=== PATIENT | male | born 1955 | race Caucasian/White ===

== ENCOUNTER 2019-12-23 13:47 | Inpatient (IN) | payer BC ==
[2019-12-23 14:46] LABS: Absolute Lymphocytes (CBC) 2.1 K/uL (0.7-4.9); Basophils % 0.4 % (0-1.3); Hematocrit 44.1 % (39.6-49.0); Lymphocytes % 23.6 % (15.3-44.8); MPV 7.9 fL (7.6-11.3); RBC Red Blood Cell Count 4.62 M/uL (4.33-5.43)
[2019-12-23 14:47] LABS: Protime INR 1.04
[2019-12-23] MEDS ORDERED: NA CHLORIDE 0.9% 1,000 ML ONE (15:01)
[2019-12-23 15:05] LABS: ALT/SGPT 62 U/L (12-78); AST/SGOT 35 U/L (15-37); Albumin 3.7 g/dL (3.4-5.0); Alkaline Phosphatase 76 U/L (45-117); BUN Blood Urea Nitrogen 59 mg/dL (7-18); Bicarbonate 26 mmol/L (21-32); Bilirubin Direct 0.3 mg/dL (0-0.2); Bilirubin Total 1.3 mg/dL (0.2-1.0); Glucose Level 96 mg/dL (74-106); NT PRO-BNP 84 pg/mL (<125); Potassium 3.3 mmol/L (3.5-5.1); Protein, Total 7.4 g/dL (6.4-8.2); Sodium Level 138 mmol/L (136-145); Troponin (Emerg Dept Use Only) < 0.02 ng/mL (0.0-0.045)
--- NOTE | 2019-12-23 15:29 | RAD REPORT ---
EXAM DESCRIPTION: Kayden Single View12/23/2019 3:10 pm CLINICAL HISTORY: syncope COMPARISON: none FINDINGS: The lungs appear clear of acute infiltrate. The heart is normal size IMPRESSION: No acute abnormalities displayed
--- NOTE | 2019-12-23 15:37 | EDPHYS ---
Physician Documentation [facility] Name: Mahad Mcdowell Age: 64 yrs Sex: Male : 1955 Arrival Date: 12/23/2019 Time: 13:49 Bed 15 Private MD: ED Physician Abisai Roca HPI: 12/22 15:36 This 64 yrs old Male presents to ER via Ambulatory with complaints of Blood kdr Pressure Problem. 15:36 The patient has experienced syncope, collapsed. Onset: The symptoms/episode kdr began/occurred suddenly, just prior to arrival. Duration: This was a single episode, Brief. Context: the episode(s) was witnessed, by a bystander, occurred at work, occurred while the patient was standing, Talking. Associated injury: Neck: Back: thoracic area, pain, Very minor. 12/23 09:18 Associated signs and symptoms: The patient has no apparent associated signs or kdr symptoms. Current symptoms: Currently, the patient is not experiencing any symptoms, the patient feels back to baseline. The patient has experienced similar episodes in the past, a few times, Tends to be more "near syncopal" as opposed to true syncope. Feel like his vision get white like he is going to pass out some time. 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 The patient has not recently seen a physician. Historical: - Allergies: 12/22 13:58 No Known Allergies; ss - Home Meds: 14:41 rosuvastatin 20 mg oral tab [Active]; Dexilant 60 mg oral CpDB [Active]; allopurinol jl7 100 mg Oral tab [Active]; irbesartan 300 mg oral tab [Active]; chlorthalidone 25 mg Oral tab [Active]; metoprolol tartrate 100 mg Oral tab [Active]; - PMHx: 14:41 Hypertension; High Cholesterol; Gout; jl7 - Immunization history:: Adult Immunizations up to date. - Social history:: Smoking status: Patient denies any tobacco usage or history of. ROS: 12/23 09:18 Constitutional: Negative for fever, chills, and weight loss, Eyes: Negative for injury, kdr pain, redness, and discharge, ENT: Negative for injury, pain, and discharge, Neck: Negative for injury, pain, and swelling, Cardiovascular: Negative for chest pain, palpitations, and edema, Respiratory: Negative for shortness of breath, cough, wheezing, and pleuritic chest pain, Abdomen/GI: Negative for abdominal pain, nausea, vomiting, diarrhea, and constipation, Back: Negative for injury and pain, : Negative for injury, bleeding, discharge, and swelling, MS/Extremity: Negative for injury and deformity, Skin: Negative for injury, rash, and discoloration, Psych: Negative for depression, anxiety, suicide ideation, homicidal ideation, and hallucinations, Allergy/Immunology: Negative for hives, rash, and allergies, Endocrine: Negative for neck swelling, polydipsia, polyuria, polyphagia, and marked weight changes, Hematologic/Lymphatic: Negative for swollen nodes, abnormal bleeding, and unusual bruising. Neuro: Positive for syncope, near syncope, Negative for altered mental status, dizziness, gait disturbance, headache, numbness, tinnitus, tremor, weakness. Exam: 09:18 Constitutional: This is a well developed, well nourished patient who is awake, alert, kdr and in no acute distress. Head/Face: Normocephalic, atraumatic. Eyes: Pupils equal round and reactive to light, extra-ocular motions intact. Lids and lashes normal. Conjunctiva and sclera are non-icteric and not injected. Cornea within normal limits. Periorbital areas with no swelling, redness, or edema. Neck: Trachea midline, no thyromegaly or masses palpated, and no cervical lymphadenopathy. Supple, full range of motion without nuchal rigidity, or vertebral point tenderness. No Meningismus. Chest/axilla: Normal chest wall appearance and motion. Nontender with no deformity. No lesions are appreciated. Cardiovascular: Regular rate and rhythm with a normal S1 and S2. No gallops, murmurs, or rubs. Normal PMI, no JVD. No pulse deficits. Respiratory: Lungs have equal breath sounds bilaterally, clear to auscultation and percussion. No rales, rhonchi or wheezes noted. No increased work of breathing, no retractions or nasal flaring. Abdomen/GI: Soft, non-tender, with normal bowel sounds. No distension or tympany. No guarding or rebound. No evidence of tenderness throughout. Back: No spinal tenderness. No costovertebral tenderness. Full range of motion. Skin: Warm, dry with normal turgor. Normal color with no rashes, no lesions, and no evidence of cellulitis. MS/ Extremity: Pulses equal, no cyanosis. Neurovascular intact. Full, normal range of motion. Neuro: Awake and alert, GCS 15, oriented to person, place, time, and situation. Cranial nerves II-XII grossly intact. Motor strength 5/5 in all extremities. Sensory grossly intact. Cerebellar exam normal. Normal gait. Psych: Awake, alert, with orientation to person, place and time. Behavior, mood, and affect are within normal limits. 09:18 Back: pain, that is very mild, of the thoracic area. Vital Signs: 12/22 13:52 BP 97 / 61; Pulse 74; Resp 16; Temp 97.0; Pulse Ox 100% on R/A; Weight 93.44 kg; Height ss 5 ft. 11 in. (180.34 cm); Pain 0/10; 14:41 BP 92 / 73; Pulse 65; Resp 13; Pulse Ox 100% ; Pain 0/10; jl7 15:00 BP 87 / 70; Pulse 70; Resp 15; Pulse Ox 100% ; jl7 15:45 BP 101 / 79; Pulse 62; Resp 15; Pulse Ox 100% ; jl7 17:45 BP 106 / 70; Pulse 65; Resp 16; Pulse Ox 100% ; jl7 13:52 Body Mass Index 28.73 (93.44 kg, 180.34 cm) ss 15:00 ERD notified, VO for 1L NS bolus jl7 MDM: 15:36 Patient medically screened. kdr 12/23 09:18 Data reviewed: vital signs, nurses notes, lab test result(s), radiologic studies. kdr Counseling: I had a detailed discussion with the patient and/or guardian regarding: the historical points, exam findings, and any diagnostic results supporting the discharge/admit diagnosis, lab results, radiology results, the need for further work-up and treatment in the hospital. 12/22 14:16 Order name: Basic Metabolic Panel; Complete Time: 15:33 [facility] 12/22 14:16 Order name: CBC with Diff; Complete Time: 15:33 [facility] 12/22 14:16 Order name: LFT's; Complete Time: 15:33 [facility] 12/22 14:16 Order name: Magnesium; Complete Time: 15:33 [facility] 12/22 14:16 Order name: NT PRO-BNP; Complete Time: 15:33 12/22 14:16 Order name: PT-INR; Complete Time: 15:33 7 12/22 14:16 Order name: Troponin (emerg Dept Use Only); Complete Time: 15:33 7 12/22 14:16 Order name: XRAY Chest (1 view); Complete Time: 15:33 7 12/22 14:16 Order name: EKG; Complete Time: 14:18 12/22 16:06 Order name: Head C Spine Cap Wo Con; Complete Time: 16:53 EDMS 12/22 14:16 Order name: Cardiac monitoring; Complete Time: 14:38 7 12/22 14:16 Order name: EKG - Nurse/Tech; Complete Time: 14:38 [facility] 12/22 14:16 Order name: IV Saline Lock; Complete Time: 14:38 7 12/22 14:16 Order name: Labs collected and sent; Complete Time: 14:38 [facility] 12/22 14:16 Order name: O2 Per Protocol; Complete Time: 14:39 [facility] 12/22 14:16 Order name: O2 Sat Monitoring; Complete Time: 14:39 jl7 Administered Medications: 12/22 14:55 Drug: NS 0.9% 1000 ml Route: IV; Rate: 1 bolus; Site: right antecubital; jl 17:00 Follow up: Response: No adverse reaction; IV Status: Completed infusion; IV Intake: jl7 1000ml Disposition: 12/23/19 15:36 Hospitalization ordered by Tho Real for Inpatient Admission. Preliminary diagnosis are Syncope and collapse, Hypotension, Bradycardia, unspecified. - Bed requested for Telemetry/MedSurg (observation). - Status is Inpatient Admission. ls4 - Condition is Fair. - Problem is new. - Symptoms have improved. Signatures: Dispatcher [employer] EDMS Deirdre Wilcox Diana, RN RN Abisai Roca MD MD [facility] Leah Elizabeth RN RN ss Danilo Macdonald, RN ACUTE DIALYSIS-C RN ACUTE DIALYSIS-Cla1 Pineda Vela RN RN jl7 Holly Rowe RN RN ls4 Corrections: (The following items were deleted from the chart) 15:54 15:36 Hospitalization Ordered by Tho Prezas DO for Observation. Preliminary kdr diagnosis is Syncope and collapse; Hypotension; Bradycardia, unspecified. Bed requested for Telemetry/MedSurg (observation). Status is Observation. Condition is Fair. Problem is new. Symptoms have improved. kdr 16:06 15:39 Head C Spine MPR Wo Con+CT.RAD.BRZ ordered. EDMS EDMS 16:06 15:39 Thoracic Spine WO Cont+CT.RAD.BRZ ordered. EDMS EDMS 16:06 16:02 Chest Abdomen Pelvis Wo Con+CT.RAD.BRZ ordered. EDMI EDMS 17:04 15:54 12/23/2019 15:36 Hospitalization Ordered by Tho Real DO for Inpatient dw Admission. Preliminary diagnosis is Syncope and collapse; Hypotension; Bradycardia, unspecified. Bed requested for Telemetry/MedSurg (observation). Status is Inpatient Admission. Condition is Fair. Problem is new. Symptoms have improved. kdr 17:04 17:04 12/23/2019 15:36 Hospitalization Ordered by Tho Real DO for Inpatient bd Admission. Preliminary diagnosis is Syncope and collapse; Hypotension; Bradycardia, unspecified. Bed requested for Telemetry/MedSurg (observation). Status is Inpatient Admission. Condition is Fair. Problem is new. Symptoms have improved. dw 19:32 17:04 12/23/2019 15:36 Hospitalization Ordered by Tho Real DO for Inpatient ls4 Admission. Preliminary diagnosis is Syncope and collapse; Hypotension; Bradycardia, unspecified. Bed requested for Telemetry/MedSurg (observation). Status is Inpatient Admission. Condition is Fair. Problem is new. Symptoms have improved. bd
--- NOTE | 2019-12-23 15:37 | ER ---
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 Pt ss reports feeling slightly lightheaded prior to incident. Coronavirus screen: Proceed with normal triage. Patient denies a cough. Patient reports shortness of breath or difficulty breathing. Patient denies measured and/or subjective temperature greater than 100.4F prior to today's visit. Patient denies travel on a cruise ship or to a country the [facility]NOTE 3] currently lists as an affected area. Patient denies contact with known and/or suspected case of COVID-19. Ebola Screen: Patient denies exposure to infectious person. Patient denies travel to an Ebola-affected area in the 21 days before illness onset. Initial Sepsis Screen: Does the patient meet any 2 criteria? No. Patient's initial sepsis screen is negative. Does the patient have a suspected source of infection? No. Patient's initial sepsis screen is negative. Risk Assessment: Do you want to hurt yourself or someone else? Patient reports no desire to harm self or others. Onset of symptoms was December 23, 2019. 13:52 Method Of Arrival: Ambulatory ss 13:52 Acuity: IVAN 3 ss Historical: - Allergies: 13:58 No Known Allergies; ss - Home Meds: 14:41 rosuvastatin 20 mg oral tab [Active]; Dexilant 60 mg oral CpDB [Active]; allopurinol jl7 100 mg Oral tab [Active]; irbesartan 300 mg oral tab [Active]; chlorthalidone 25 mg Oral tab [Active]; metoprolol tartrate 100 mg Oral tab [Active]; - PMHx: 14:41 Hypertension; High Cholesterol; Gout; jl7 - Immunization history:: Adult Immunizations up to date. - Social history:: Smoking status: Patient denies any tobacco usage or history of. Screenin:41 Abuse screen: Denies threats or abuse. Denies injuries from another. Nutritional jl7 screening: No deficits noted. Tuberculosis screening: No symptoms or risk factors identified. Fall Risk IV access (20 points). Total Rosales Fall Scale indicates No Risk (0-24 pts). Assessment: 14:00 General: Appears in no apparent distress. uncomfortable, Behavior is calm, cooperative, jl7 appropriate for age. Pain: Denies pain. Neuro: Level of Consciousness is awake, alert, obeys commands, Oriented to person, place, time, situation. Cardiovascular: Patient's skin is warm and dry. Respiratory: Airway is patent Respiratory effort is even, unlabored, Respiratory pattern is regular, symmetrical. GI: Patient currently denies diarrhea, nausea, vomiting. Derm: Skin is pink, warm \T\ dry. 15:00 Reassessment: ERD notified of BP, VO for 1 L NS bolus. jl7 16:00 Reassessment: Patient appears in no apparent distress at this time. No changes from jl7 previously documented assessment. Patient and/or family updated on plan of care and expected duration. Pain level reassessed. Patient is alert, oriented x 3, equal unlabored respirations, skin warm/dry/pink. 17:00 Reassessment: Patient appears in no apparent distress at this time. No changes from jl7 previously documented assessment. Patient and/or family updated on plan of care and expected duration. Pain level reassessed. Patient is alert, oriented x 3, equal unlabored respirations, skin warm/dry/pink. Vital Signs: 13:52 BP 97 / 61; Pulse 74; Resp 16; Temp 97.0; Pulse Ox 100% on R/A; Weight 93.44 kg; Height ss 5 ft. 11 in. (180.34 cm); Pain 0/10; 14:41 BP 92 / 73; Pulse 65; Resp 13; Pulse Ox 100% ; Pain 0/10; jl7 15:00 BP 87 / 70; Pulse 70; Resp 15; Pulse Ox 100% ; jl7 15:45 BP 101 / 79; Pulse 62; Resp 15; Pulse Ox 100% ; jl7 17:45 BP 106 / 70; Pulse 65; Resp 16; Pulse Ox 100% ; jl7 13:52 Body Mass Index 28.73 (93.44 kg, 180.34 cm) ss 15:00 ERD notified, VO for 1L NS bolus jl7 ED Course: 13:49 Patient arrived in ED. ag5 13:56 Triage completed. ss 13:58 Arm band placed on left wrist. ss 14:06 Pineda Vela, RN is Primary Nurse. jl7 14:06 Abisai Roca MD is Attending Physician. jl7 14:20 Patient has correct armband on for positive identification. Placed in gown. Bed in low jl7 position. Call light in reach. Side rails up X2. alarm security or surveillance monitor on. Pulse ox on. NIBP on. Warm blanket given. 14:40 EKG done, by lead based paint technician. reviewed by Abisai Roca MD. at1 14:42 Inserted saline lock: 20 gauge in right antecubital area, using aseptic technique. dh4 15:10 XRAY Chest (1 view) In Process Unspecified. EDMS 15:36 Tho Real DO is Hospitalizing Provider. kdr 16:14 Head C Spine Cap Wo Con In Process Unspecified. EDMS 17:45 No provider procedures requiring assistance completed. Patient admitted, IV remains in jl7 place. intact, No redness/swelling at site. Administered Medications: 14:55 Drug: NS 0.9% 1000 ml Route: IV; Rate: 1 bolus; Site: right antecubital; jl7 17:00 Follow up: Response: No adverse reaction; IV Status: Completed infusion; IV Intake: jl7 1000ml Intake: 17:00 IV: 1000ml; Total: 1000ml. jl7 Outcome: 15:36 Decision to Hospitalize by Provider. kdr 19:32 Patient left the ED. ls4 Signatures: Dispatcher [employer] EDMS Abisai Roca MD MD kdr Leah Elizabeth RN RN Katharina Clemens, commercial trailer truck driver EKG Tat1 Pineda Vela, RN RN jl7 Holly Rowe, RN RN ls4 Rome Mendoza Bautista Tellez 4
--- NOTE | 2019-12-23 16:31 | RAD REPORT ---
EXAM DESCRIPTION: CT - Head C Spine Cap Wo Con - 12/23/2019 4:13 pm TECHNIQUE: Computed axial tomography of the head and cervical spine was obtained. Coronal and sagitt al reconstruction was performed Computed axial tomography of the chest, abdomen and pelvis was obtained. Contrast was not requested. All CT scans are performed using dose optimization technique as appropriate and may include automated exposure control or mA/KV adjustment according to patient size. CLINICAL HISTORY: Syncope. Head and neck injury with chest and abdominal pain status post fall COMPARISON: none FINDINGS: An intracranial bleed is not seen. The ventricles are prominent. An extra-axial fluid collection is not noted. . Fluid within the sinuses/mastoids is not seen. A cervical fracture is not seen. No dislocation is noted. The evaluation of mediastinum, farhad, vessels, solid organs and bowel are limited secondary to the lac k of contrast administration. A mediastinal hematoma is not noted. A pleural effusion is not seen. A lung contusion is not present. The liver,spleen, pancreas, adrenals,kidneys and bladder appear grossly normal. The right kidney lies within the right pelvis. IMPRESSION: 1. Prominence of the ventricles. This may be secondary to cerebral atrophy. Normal pressure hydroceph alus can also result in this appearance and should be correlated clinically. No traumatic intracrania l abnormality noted. 2. A cervical fracture is not visualized. If the patient continues have symptoms to suggest intracran ial/spinal cord pathology MRI be recommended 3. No traumatic abnormality involving the chest/abdomen/pelvis.
--- NOTE | 2019-12-23 16:51 | P.HP ---
Certification for Inpatient Patient admitted to: Inpatient With expected LOS: >2 Midnights Patient will require the following post-hospital care: None Practitioner: I am a practitioner with admitting privileges, knowledge of patient current condition, hospital course, and medical plan of care. Services: Services provided to patient in accordance with Admission requirements found in Title 42 Section 412.3 of the Code of Federal Regulations Patient History Date of Service: 12/23/19 Primary Care Provider: Out of town Reason for admission: Syncope, acute renal failure History of Present Illness: 64 old male with medical history of hypertension, gout, hyperlipidemia presented to the emergency department for syncope that occurred at work. Patient reports that he was talking with a co-worker and passed out. Patient denies any chest pain, diaphoresis, shortness of breath prior to this episode. Patient also denies any headache or neurological symptoms surrounding this episode of syncope. Upon arrival to the emergency department patient was found to be hypotensive and bradycardic. Patient was given fluid bolus and blood pressure has improved. Heart rate is also normalized to around the 60s. Patient does state beta-robert therapy. During his evaluation in the emergency department patient was also found to have acute renal failure with a creatinine greater than 3. Patient admits to recently taking colchicine for gout as well as his ARB, and diuretic for blood pressure. When I saw the patient in the emergency department he appeared comfortable, stable. Patient does not appear septic at this time. Vital signs within normal limits. Patient's potassium is 3.3. Nephrology was consulted while patient was in the emergency department. Patient will be admitted for further evaluation and management of this condition. Home medications list reviewed: Yes - Past Medical/Surgical History Has patient received pneumonia vaccine in the past: No Diabetic: No -: Gout -: Hypertension -: TURP -: Thumb surgery Psychosocial/ Personal History: Patient is single and lives at home. - Family History Mother -: Cancer Father -: Heart disease, Hypertension - Social History Smoking Status: Former smoker Alcohol use: Yes CD- Drugs: No Caffeine use: Yes Place of Residence: Home Review of Systems General: Unremarkable Eyes: Unremarkable ENT: Unremarkable Respiratory: Unremarkable Cardiovascular: As per HPI Gastrointestinal: Unremarkable Genitourinary: Unremarkable Musculoskeletal: Unremarkable Integumentary: Unremarkable Neurological: Unremarkable Lymphatics: Unremarkable Physical Examination - Physical Exam General: Alert, In no apparent distress, Oriented x3 HEENT: Atraumatic, Normocephalic, PERRLA Neck: Supple Respiratory: Clear to auscultation bilaterally, Normal air movement Cardiovascular: Normal pulses, Regular rate/rhythm, Normal S1 S2 Capillary refill: <2 Seconds Gastrointestinal: Normal bowel sounds, Soft and benign, No ascites, No tendernes s, No masses, No rebound, No guarding Musculoskeletal: No clubbing, No contractures, No erythema, No tenderness, No warmth Integumentary: No tenderness/swelling, No erythema, No warmth Neurological: Normal speech, Normal tone, Normal affect - Studies Laboratory Data (last 24 hrs) 12/23/19 14:32: PT 12.3, INR 1.04 12/23/19 14:32: WBC 8.9, Hgb 15.1, Hct 44.1, Plt Count 256 12/23/19 14:32: Sodium 138, Potassium 3.3 L, BUN 59 H, Creatinine 3.56 H, Glucose 96, Magnesium 2.0, Total Bilirubin 1.3 H, AST 35, ALT 62, Alkaline Phosphatase 76 Assessment and Plan - Plan Assessment Syncope with hypotension and bradycardia likely secondary to acute renal failure and beta-robert use Acute renal failure likely secondary to NSAID use in concurrence with ARB and diuretic Hypertension Hyperlipidemia Gout Plan Syncope with hypotension and bradycardia likely secondary to acute renal failure and beta-robert use: Patient will be admitted for further evaluation management. Will obtain echocardiogram and arterial ultrasound of the carotids. Will discontinue blood pressure medications at this time and closely monitor patient's vital signs. Will adjust blood pressure medication as necessary. Nephrology has also been consulted on this case to help manage patient's acute renal failure. DVT prophylaxis with heparin 5000 units subcutaneous twice daily. Patient will remain on telemetry throughout this hospitalization. Acute renal failure likely secondary to NSAID use in concurrence with ARB and diuretic: Nephrology has been consulted on this case. Will discontinue use of NSAIDs and irbesartan as well as chlorthalidone. Will continue with IV fluids and recheck renal function in the morning. Appreciate further input from nephrology. Will follow up from results from CT scan without contrast in the emergency department. Hypertension: Will obtain patient's home medications, will adjust accordingly in regards to patient's acute renal failure and bradycardia. Hyperlipidemia: Will obtain and continue patient's home medications. Gout: Will obtain and continue patient's home medications. Discharge Plan: Home Plan to discharge in: Greater than 2 days - Advance Directives Does patient have a Living Will: No Does patient have a Durable POA for Healthcare: No - Code Status/Comfort Care Code Status Assessed: Yes (Patient is full code) Critical Care: No Time Spent Managing Pts Care (In Minutes): 55
[2019-12-23] MEDS ORDERED: NA CHLORIDE 0.9% 1,000 ML IV SCH ×2 (20:24→22:37)
[2019-12-23] MEDS ORDERED: ONDANSETRON 4 MG/2 ML VIAL IV PRN (20:24)
[2019-12-23] MEDS ORDERED: TRAMADOL HCL 50 MG TAB PO PRN (20:24)
[2019-12-23] MEDS ORDERED: ACETAMINOPHEN 500 MG TAB PO PRN (20:24)
[2019-12-23] MEDS ORDERED: HYDROCODONE/APAP 5/325 MG TAB PO PRN (20:24)
[2019-12-23 21:08] VITALS: BMI 28.7
[2019-12-23] MEDS: HEPARIN 5000 UNIT/ML 1 ML VIAL SQ SCH (21:45)
--- NOTE | 2019-12-23 22:44 | P.CNS ---
Date of Consult: 12/23/19 Reason for Consult: LOC Requesting Physician: Tho Real Primary Care Provider: Out of town Chief Complaint: Syncope, acute renal failure History of Present Illness: 64 yo WM Gout, HTN presented to the ER following an episode of syncope at work while talking to his colleague. Reports drinking plenty of water. No excessive diaphoresis. No NSAIDs. Takes Tylneol as needed for pain. No recent change in medications. No difficulty with urination. Report urinary retention 2 years ago due to BPH/LUTs that improved after surgical intervention by his urologist. Recent flare of gout treated with allopurinol and prednisone. Reports diarrhea with the prednisone. 64 old male with medical history of hypertension, gout, hyperlipidemia presented to the emergency department for syncope that occurred at work. Patient reports that he was talking with a co-worker and passed out. Patient denies any chest pain, diaphoresis, shortness of breath prior to this episode. Patient also denies any headache or neurological symptoms surrounding this episode of syncope. Upon arrival to the emergency department patient was found to be hypotensive and bradycardic. Patient was given fluid bolus and blood pressure has improved. Heart rate is also normalized to around the 60s. Patient does state beta-robert therapy. During his evaluation in the emergency department patient was also found to have acute renal failure with a creatinine greater than 3. Patient admits to recently taking colchicine for gout as well as his ARB, and diuretic for blood pressure. 15:36 This 64 yrs old Male presents to ER via Ambulatory with complaints of Blood kdr Pressure Problem. 15:36 The patient has experienced syncope, collapsed. Onset: The symptoms/episode kdr began/occurred suddenly, just prior to arrival. Duration: This was a single episode, Brief. Context: the episode(s) was witnessed, by a bystander, occurred at work, occurred while the patient was standing, Talking. Associated injury: Neck: Back: thoracic area, pain, Very minor. Allergies No Known Allergies Allergy (Verified 12/23/19 20:26) Home medications list reviewed: Yes Home Medications: Allopurinol 0.5 tab PO DAILY 12/23/19 Chlorthalidone 25 mg PO DAILY 12/23/19 Dexlansoprazole [Dexilant] 60 mg PO PRN PRN 12/23/19 Fluticasone [Flonase 50mcg Nasal [place]] 2 sprays NS DAILY 12/23/19 Irbesartan 300 mg PO DAILY 12/23/19 Levocetirizine Dihydrochloride [Xyzal] 5 mg PO DAILY 12/23/19 Metoprolol Tartrate [Lopressor] 100 mg PO DAILY 12/23/19 Rosuvastatin [Crestor] 20 mg PO BEDTIME 12/23/19 - Past Medical/Surgical History Diabetic: No -: Gout -: Hypertension -: TURP -: Thumb surgery -: tonsillectomy Psychosocial/ Personal History: Patient is single and lives at home. - Family History Mother Medical History: Cancer Father Medical History: Heart disease, Hypertension - Social History Alcohol use: Yes CD- Drugs: No Caffeine use: Yes Place of Residence: Home Review of Systems 10-point ROS is otherwise unremarkable General: Weakness Musculoskeletal: Back Pain Physical Examination Temp Pulse Resp BP Pulse Ox 97.3 F 73 18 98/74 99 12/23/19 20:00 12/23/19 20:00 12/23/19 20:00 12/23/19 20:00 12/23/19 20:00 General: In no apparent distress, Oriented x3, Cooperative HEENT: Atraumatic, Normocephalic Neck: Supple Respiratory: Clear to auscultation bilaterally, Normal air movement Cardiovascular: No edema, Regular rate/rhythm Gastrointestinal: Soft and benign, Non-distended Musculoskeletal: No clubbing, No contractures Integumentary: No rashes, No cyanosis Neurological: Normal speech Laboratory Data (last 24 hrs) 12/23/19 14:32: PT 12.3, INR 1.04 12/23/19 14:32: WBC 8.9, Hgb 15.1, Hct 44.1, Plt Count 256 12/23/19 14:32: Sodium 138, Potassium 3.3 L, BUN 59 H, Creatinine 3.56 H, Glucose 96, Magnesium 2.0, Total Bilirubin 1.3 H, AST 35, ALT 62, Alkaline Phosphatase 76 Imagings Data: CT - Head C Spine Cap Wo Con - 12/23/2019 4:13 pm TECHNIQUE: Computed axial tomography of the head and cervical spine was obtained. Coronal and sagittal reconstruction was performed Computed axial tomography of the chest, abdomen and pelvis was obtained. Contrast was not requested. All CT scans are performed using dose optimization technique as appropriate and may include automated exposure control or mA/KV adjustment according to patient size. CLINICAL HISTORY: Syncope. Head and neck injury with chest and abdominal pain status post fall COMPARISON: none FINDINGS: An intracranial bleed is not seen. The ventricles are prominent. An extra-axial fluid collection is not noted. . Fluid within the sinuses/mastoids is not seen. A cervical fracture is not seen. No dislocation is noted. The evaluation of mediastinum, farhad, vessels, solid organs and bowel are limited secondary to the lack of contrast administration. A mediastinal hematoma is not noted. A pleural effusion is not seen. A lung contusion is not present. The liver,spleen, pancreas, adrenals,kidneys and bladder appear grossly normal. The right kidney lies within the right pelvis. IMPRESSION: 1. Prominence of the ventricles. This may be secondary to cerebral atrophy. Normal pressure hydrocephalus can also result in this appearance and should be correlated clinically. No traumatic intracranial abnormality noted. 2. A cervical fracture is not visualized. If the patient continues have symptoms to suggest intracranial/spinal cord pathology MRI be recommended 3. No traumatic abnormality involving the chest/abdomen/pelvis. EXAM DESCRIPTION: [facility] Single View12/23/2019 3:10 pm CLINICAL HISTORY: syncope COMPARISON: none FINDINGS: The lungs appear clear of acute infiltrate. The heart is normal size IMPRESSION: No acute abnormalities displayed Conclusions/Impression: A/ LOC may be due to hypovolemia Hypokalemia HTN complicated by hypotension Gout Syncope P/ Continue current POC and Medications. Increase IVF. Give LR bolus. Replete potassium. Hold antihypertensives. Renal and Bladder US. No NSAIDs. AM labs. Daily weight. Thank you kindly for consultation. Case reviewed with Danilo Macdonald.
[2019-12-23] MEDS ORDERED: POTASSIUM CL SA 10 MEQ TAB PO ONE (22:52)
[2019-12-23] MEDS ORDERED: Ringers Lactate 500 ML IV SCH (23:00)
[2019-12-24] MEDS: NA CHLORIDE 0.9% 1,000 ML IV SCH ×3 (02:39→14:55)
[2019-12-24 04:57] LABS: Absolute Lymphocytes (CBC) 2.8 K/uL (0.7-4.9); Basophils % 0.4 % (0-1.3); Hematocrit 40.8 % (39.6-49.0); Lymphocytes % 45.1 % (15.3-44.8); MPV 8.2 fL (7.6-11.3); RBC Red Blood Cell Count 4.32 M/uL (4.33-5.43)
[2019-12-24 05:24] LABS: Magnesium 1.6 mg/dL (1.8-2.4); Phosphorus 4.1 mg/dL (2.5-4.9); Potassium 4.1 mmol/L (3.5-5.1); Thyroid Stimulating Hormone 0.436 uIU/mL (0.360-3.740); Uric Acid 11.5 mg/dL (3.5-7.2)
[2019-12-24 05:28] LABS: Blood Morphology Comment NOT SEEN (NOT SEEN); Platelet Estimate ADEQ
[2019-12-24] MEDS ORDERED: MAGNESIUM SULFATE 1 gm IVPB 1 GM/100 ML BAG IV ONE (06:13)
[2019-12-24 07:19] LABS: Urine Appearance CLEAR; Urine Bilirubin NEGATIVE (NEG); Urine Blood NEGATIVE (NEG); Urine Color YELLOW; Urine Glucose NEGATIVE (NEG); Urine Protein NEGATIVE (NEG); Urine Urobilinogen 0.2 mg/dL (0.2-1.0); Urine pH 5.5 (5.0-7.0)
[2019-12-24 08:15] LABS: Urine Bacteria NONE SEEN /HPF (NONE SEEN); Urine Culture Reflex Order NOT NEEDED; Urine RBC NONE SEEN /HPF (NONE SEEN)
[2019-12-24] MEDS: DOCUSATE NA 100 MG CAP PO SCH ×3 (09:00→21:20)
[2019-12-24] MEDS: HEPARIN 5000 UNIT/ML 1 ML VIAL SQ SCH ×2 (09:41→21:20)
--- NOTE | 2019-12-24 09:56 | RAD REPORT ---
EXAM DESCRIPTION: US - Renal Ultrasound-Complete - 12/24/2019 9:12 am CLINICAL HISTORY: LOC COMPARISON: No comparisons FINDINGS: The right kidney measures 8.9 x 5.1 x 3.9 cm. The left kidney measures 12.6 x 5.3 x 4.3 c m. Right kidney is located in the pelvis and less well visualized. There is no history of renal trans plant in this is probably normal variant renal migration abnormality. Renal cortical thickness and ec hogenicity are normal. No hydronephrosis or suspicious renal mass. A 15 millimeter cyst is present lo wer pole of the left kidney. Bladder is evaluated on separately requested examination. IMPRESSION: No hydronephrosis or suspicious renal mass. The right kidney is located in the right side pelvis as a normal developmental variant. No history of renal transplant.
--- NOTE | 2019-12-24 09:58 | RAD REPORT ---
EXAM DESCRIPTION: US - CP - 12/24/2019 9:13 am CLINICAL HISTORY: syncope COMPARISON: No comparisons TECHNIQUE: Real-time sonographic evaluation of bilateral carotid and vertebral systems was performed . Higgins scale and Doppler interrogation were performed with waveform tracing bilaterally. FINDINGS: Normal high resistance waveforms are noted in both external carotid arteries. The common c arotid arteries and internal carotid arteries show normal low resistance waveforms. Focal calcified plaquing changes are present at the origin of the left internal carotid artery. This does not result in a significant degree of luminal narrowing. Peak systolic and end diastolic velocit y values and the ICA/CCA ratios are in the non-hemodynamically significant range. Antegrade flow seen in both vertebral arteries. Velocity values and ratios were recorded and are retained in the patient's imaging records. IMPRESSION: No significant atherosclerotic changes noted. Focal calcified plaque in the left ICA mederos s not cause significant luminal narrowing. No evidence of a hemodynamically significant stenosis.
--- NOTE | 2019-12-24 09:59 | RAD REPORT ---
EXAM DESCRIPTION: US - Urinary Bladder - 12/24/2019 9:13 am CLINICAL HISTORY: LOC. Hx BPH with LUTS. COMPARISON: No comparisons FINDINGS: No bladder wall thickening or mass. Bilateral ureteral jets are identified. No stone or ot her intraluminal abnormality identifiable. IMPRESSION: Unremarkable bladder ultrasound.
--- NOTE | 2019-12-24 11:14 | EKG ---
Test Date: 2019-12-23 Test Time: 14:37:42 Freight Service Inspector: HERIBERTO MEASUREMENT RESULTS: Intervals: Rate: 63 NE: 146 QRSD: 82 QT: 444 QTc: 454 [place]: P: 38 NE: 146 QRS: -5 T: 10 INTERPRETIVE STATEMENTS: Normal sinus rhythm Normal ECG No previous ECG available for comparison Electronically Signed On 12-24-19 11:13:04 CDT by Xander Chapa
--- NOTE | 2019-12-24 11:36 | P.PN ---
Subjective Date of Service: 12/24/19 Primary Care Provider: Out of town Chief Complaint: Syncope, acute renal failure Subjective: No new changes, Tolerating diet, Ambulating, Improving Review of Systems General: Unremarkable Eyes: Unremarkable ENT: Unremarkable Respiratory: Unremarkable Cardiovascular: Unremarkable Gastrointestinal: Unremarkable Genitourinary: Unremarkable Musculoskeletal: Unremarkable Integumentary: Unremarkable Neurological: Unremarkable Physical Examination - Vital Signs Temperature: 96.9 F Blood Pressure: 110/71 Pulse: 64 Respirations: 18 Pulse Ox (%): 97 - Physical Exam General: Alert, In no apparent distress, Oriented x3 HEENT: Atraumatic, Normocephalic Neck: Supple Respiratory: Clear to auscultation bilaterally, Normal air movement Cardiovascular: No edema Capillary refill: <2 Seconds Gastrointestinal: Normal bowel sounds, Soft and benign Musculoskeletal: No erythema, No tenderness Integumentary: No erythema, No warmth Neurological: Normal gait, Normal speech, Normal strength at 5/5 x4 extr, Normal tone - Studies Laboratory Data (last 24 hrs) 12/23/19 14:32: PT 12.3, INR 1.04 12/23/19 14:32: WBC 8.9, Hgb 15.1, Hct 44.1, Plt Count 256 12/23/19 14:32: Sodium 138, Potassium 3.3 L, BUN 59 H, Creatinine 3.56 H, Glucose 96, Magnesium 2.0, Total Bilirubin 1.3 H, AST 35, ALT 62, Alkaline Phosphatase 76 Assessment & Plan Discharge Plan: Home Plan to discharge in: 48 Hours - Code Status/Comfort Care Code Status Assessed: Yes (Patient is full code) Physician Review Additional Text: Assessment Syncope with hypotension and bradycardia likely secondary to acute renal failure and beta-robert use Acute renal failure likely secondary to NSAID use in concurrence with ARB and diuretic Hypertension Hyperlipidemia Gout Plan Syncope with hypotension and bradycardia likely secondary to acute renal failure and beta-robert use: Patient will be admitted for further evaluation management. Ultrasound of the carotids was negative for any significant plaque. Will discontinue blood pressure medications at this time and closely monitor patient's vital signs. Patient's blood pressure has remained within normal limits without use of medication. Nephrology has also been consulted on this case to help manage patient's acute renal failure. DVT prophylaxis with heparin 5000 units subcutaneous twice daily. Patient will remain on telemetry throughout this hospitalization. Acute renal failure likely secondary to dehydration and NSAID use in concurrence with ARB and diuretic: Nephrology has been consulted on this case. Will discontinue use of NSAIDs and irbesartan as well as chlorthalidone. Will continue with IV fluids and recheck renal function in the morning. Appreciate further input from nephrology. Patient had a CT scan without contrast, renal ultrasound, bladder ultrasound that were all unremarkable for cause of acute renal failure. Hypertension: Patient's blood pressure has remained on the low end of normal without any blood pressure medications. Will continue to monitor patient's blood pressure. Hyperlipidemia: Will obtain and continue patient's home medications. Triglycerides are elevated will consider prescription for fish oil upon discharge. Gout: Will obtain and continue patient's home medications. Critical Care: No Time Spent Managing Pts Care (In Minutes): 55
--- NOTE | 2019-12-24 12:00 | ECHO ---
HEIGHT: 5 ft 11 in WEIGHT: 206 lb 0 oz DATE OF STUDY: 12/24/[address]: Danilo Macdonald NP 2-DIMENSIONAL: YES M.MODE: YES DOPPLER: YES COLOR FLOW: YES TDS: YES PORTABLE: NO DEFINITY: NO BUBBLE STUDY: NO DIAGNOSIS: SYNCOPE CARDIAC HISTORY: CATHERIZATION: NO SURGERY: NO PROSTHETIC VALVE: NO PACEMAKER: NO MEASUREMENTS (cm) DIASTOLIC (NORMALS) SYSTOLIC (NORMALS) IVSd 1.0 (0.6-1.2) LA Diam 3.4 (1.9-4.0) LVEF 62% LVIDd 3.5 (3.5-5.7) LVIDs 2.4 (2.0-3.5) %FS 33% LVPWd 1.1 (0.6-1.2) Ao Diam 3.3 (2.0-3.7) 2 DIMENSIONAL ASSESSMENT: RIGHT ATRIUM: NORMAL LEFT ATRIUM: NORMAL RIGHT VENTRICLE: NORMAL LEFT VENTRICLE: NORMAL TRICUSPID VALVE: NORMAL MITRAL VALVE: MITRAL ANNULAR CALCIFICATION PULMONIC VALVE: NORMAL AORTIC VALVE: NORMAL PERICARDIAL EFFUSION: NONE AORTIC ROOT: NORMAL LEFT VENTRICULAR WALL MOTION: NORMAL DOPPLER/COLOR FLOW: MILD TRICUSPID REGURGITATION. COMMENTS: TECHNICALLY DIFFICULT STUDY. NORMAL LEFT VENTRICULAR SIZE AND FUNCTION. MITRAL ANNULAR CALCIFICATION. AORTIC SCLEROSIS WITH NO STENOSIS. TECHNOLOGIST: Gerhard MENDES
[2019-12-24] MEDS: NACHLORIDE 0.45% 1,000 ML IV SCH (17:46)
--- NOTE | 2019-12-24 22:09 | P.PN ---
Date of Service: 12/24/19 Vital Signs Temp Pulse Resp BP Pulse Ox 97.6 F 56 18 115/80 99 12/24/19 16:00 12/24/19 16:00 12/24/19 16:00 12/24/19 16:00 12/24/19 16:00 Medications Acetaminophen (Tylenol -Extra Strength) 500 mg PO Q4HP PRN PRN Reason: TEMP > 101' F Stop: 01/22/20 20:25 Hydrocodone Bitart/Acetaminophen ([place] 5/325) 1 tab PO Q6H PRN PRN Reason: Pain scale 5-7 (Moderate) Stop: 01/22/20 20:25 Docusate Sodium (Colace Cap) 100 mg PO BID [facility] Stop: 01/23/20 09:01 Last Admin: 12/24/19 21:20 Dose: 100 mg Documented by: Heparin Sodium (Porcine) (Heparin 5,000 Units/Ml) 5,000 unit SQ Q12HR [facility] Stop: 01/22/20 21:01 Last Admin: 12/24/19 21:20 Dose: 5,000 unit Documented by: Sodium Chloride (Sodium Chloride 0.45%) 1,000 mls @ 125 mls/hr IV .Q8H [facility] Stop: 01/23/20 17:01 Last Admin: 12/24/19 17:46 Dose: 1,000 mls Documented by: Ondansetron HCl (Zofran) 4 mg IV Q6HP PRN PRN Reason: NAUSEA / VOMITING Stop: 01/22/20 20:25 Sodium Chloride (Normal Saline Flush) 10 ml IV BID [facility] Stop: 01/22/20 21:01 Last Admin: 12/24/19 21:00 Dose: Not Given Documented by: Tramadol HCl (Ultram) 50 mg PO Q6H PRN PRN Reason: Pain scale 5-7 (Moderate) Stop: 01/22/20 20:25 Assessment/ Plan: Nephrology CPS stable without CP or SOB. No acute events overnight. Feeling better. Vitals, medications, blood work and imaging reviewed in the chart. General: In no apparent distress, Oriented x3, Cooperative HEENT: Atraumatic, Normocephalic Neck: Supple Respiratory: Clear to auscultation bilaterally, Normal air movement Cardiovascular: No edema, Regular rate/rhythm Gastrointestinal: Soft and benign, Non-distended Musculoskeletal: No clubbing, No contractures Integumentary: No rashes, No cyanosis Neurological: Normal speech Laboratory Data (last 24 hrs) 12/23/19 14:32: PT 12.3, INR 1.04 12/23/19 14:32: WBC 8.9, Hgb 15.1, Hct 44.1, Plt Count 256 12/23/19 14:32: Sodium 138, Potassium 3.3 L, BUN 59 H, Creatinine 3.56 H, Glucose 96, Magnesium 2.0, Total Bilirubin 1.3 H, AST 35, ALT 62, Alkaline Phosphatase 76 Imagings Data: CT - Head C Spine Cap Wo Con - 12/23/2019 4:13 pm TECHNIQUE: Computed axial tomography of the head and cervical spine was obtained. Coronal and sagittal reconstruction was performed Computed axial tomography of the chest, abdomen and pelvis was obtained. Contrast was not requested. All CT scans are performed using dose optimization technique as appropriate and may include automated exposure control or mA/KV adjustment according to patient size. CLINICAL HISTORY: Syncope. Head and neck injury with chest and abdominal pain status post fall COMPARISON: none FINDINGS: An intracranial bleed is not seen. The ventricles are prominent. An extra-axial fluid collection is not noted. . Fluid within the sinuses/mastoids is not seen. A cervical fracture is not seen. No dislocation is noted. The evaluation of mediastinum, farhad, vessels, solid organs and bowel are limited secondary to the lack of contrast administration. A mediastinal hematoma is not noted. A pleural effusion is not seen. A lung contusion is not present. The liver,spleen, pancreas, adrenals,kidneys and bladder appear grossly normal. The right kidney lies within the right pelvis. IMPRESSION: 1. Prominence of the ventricles. This may be secondary to cerebral atrophy. Normal pressure hydrocephalus can also result in this appearance and should be correlated clinically. No traumatic intracranial abnormality noted. 2. A cervical fracture is not visualized. If the patient continues have symptoms to suggest intracranial/spinal cord pathology MRI be recommended 3. No traumatic abnormality involving the chest/abdomen/pelvis. EXAM DESCRIPTION: [facility] Single View12/23/2019 3:10 pm CLINICAL HISTORY: syncope COMPARISON: none FINDINGS: The lungs appear clear of acute infiltrate. The heart is normal size IMPRESSION: No acute abnormalities displayed Conclusions/Impression: A/ LOC may be due to hypovolemia Hypokalemia HTN complicated by hypotension Gout Syncope P/ Continue current POC and Medications. Change IVF to 1/2NS. Replete lytes PRN. Give MagOx. Hold antihypertensives. Change to regular diet. No NSAIDs. AM labs. Daily weight.
[2019-12-24] MEDS ORDERED: MAGNESIUM OXIDE 400 MG TAB PO SCH (22:15)
[2019-12-25] MEDS: NACHLORIDE 0.45% 1,000 ML IV SCH ×3 (01:37→11:51)
[2019-12-25 06:06] VITALS: O2SAT 98
[2019-12-25 06:37] LABS: Magnesium 1.8 mg/dL (1.8-2.4); Potassium 3.7 mmol/L (3.5-5.1)
[2019-12-25 06:39] LABS: Absolute Lymphocytes (CBC) 2.6 K/uL (0.7-4.9); Basophils % 0.5 % (0-1.3); Hematocrit 40.1 % (39.6-49.0); Lymphocytes % 51.9 % (15.3-44.8); MPV 8.3 fL (7.6-11.3); RBC Red Blood Cell Count 4.19 M/uL (4.33-5.43)
[2019-12-25] MEDS ORDERED: MAGNESIUM SULFATE 1 gm IVPB 1 GM/100 ML BAG IV ONE (08:00)
[2019-12-25] MEDS: DOCUSATE NA 100 MG CAP PO SCH (08:38)
[2019-12-25] MEDS: HEPARIN 5000 UNIT/ML 1 ML VIAL SQ SCH (08:38)
[2019-12-25] MEDS ORDERED: POTASSIUM CL SA 10 MEQ TAB PO ONE (09:00)
[2019-12-25 11:09] LABS: Blood Morphology Comment NOT SEEN (NOT SEEN); Platelet Estimate ADEQ
--- NOTE | 2019-12-25 11:31 | P.DS ---
Admission Date: 12/23/19 Discharge Date: 12/25/19 Primary Care Provider: Out of town Disposition: ROUTINE DISCHARGE Discharge Condition: GOOD Reason for Admission: Syncope, acute renal failure Consultations: Nephrology-Dr. Suarez Procedures: CT Scan: FINDINGS: An intracranial bleed is not seen. The ventricles are prominent. An extra-axial fluid collection is not noted. . Fluid within the sinuses/mastoids is not seen. A cervical fracture is not seen. No dislocation is noted. The evaluation of mediastinum, farhad, vessels, solid organs and bowel are limited secondary to the lack of contrast administration. A mediastinal hematoma is not noted. A pleural effusion is not seen. A lung contusion is not present. The liver,spleen, pancreas, adrenals,kidneys and bladder appear grossly normal. The right kidney lies within the right pelvis. IMPRESSION: 1. Prominence of the ventricles. This may be secondary to cerebral atrophy. Normal pressure hydrocephalus can also result in this appearance and should be correlated clinically. No traumatic intracranial abnormality noted. 2. A cervical fracture is not visualized. If the patient continues have symptoms to suggest intracranial/spinal cord pathology MRI be recommended 3. No traumatic abnormality involving the chest/abdomen/pelvis. ECHO: EF 62% LEFT VENTRICULAR WALL MOTION: NORMAL DOPPLER/COLOR FLOW: MILD TRICUSPID REGURGITATION. COMMENTS: TECHNICALLY DIFFICULT STUDY. NORMAL LEFT VENTRICULAR SIZE AND FUNCTION. MITRAL ANNULAR CALCIFICATION. AORTIC SCLEROSIS WITH NO STENOSIS. Carotid doppler: FINDINGS: Normal high resistance waveforms are noted in both external carotid arteries. The common carotid arteries and internal carotid arteries show normal low resistance waveforms. Focal calcified plaquing changes are present at the origin of the left internal carotid artery. This does not result in a significant degree of luminal narrowing. Peak systolic and end diastolic velocity values and the ICA/CCA ratios are in the non-hemodynamically significant range. Antegrade flow seen in both vertebral arteries. Velocity values and ratios were recorded and are retained in the patient's imaging records. IMPRESSION: No significant atherosclerotic changes noted. Focal calcified plaque in the left ICA does not cause significant luminal narrowing. No evidence of a hemodynamically significant stenosis. Renal US: FINDINGS: The right kidney measures 8.9 x 5.1 x 3.9 cm. The left kidney measures 12.6 x 5.3 x 4.3 cm. Right kidney is located in the pelvis and less well visualized. There is no history of renal transplant in this is probably normal variant renal migration abnormality. Renal cortical thickness and echogenicity are normal. No hydronephrosis or suspicious renal mass. A 15 millimeter cyst is present lower pole of the left kidney. Bladder is evaluated on separately requested examination. IMPRESSION: No hydronephrosis or suspicious renal mass. The right kidney is located in the right side pelvis as a normal developmental variant. No history of renal transplant. Bladder US: COMPARISON: No comparisons FINDINGS: No bladder wall thickening or mass. Bilateral ureteral jets are identified. No stone or other intraluminal abnormality identifiable. IMPRESSION: Unremarkable bladder ultrasound. Medical Problem List: Syncope with hypotension and bradycardia complicated with acute renal failure likely related to hypovolemia/medications/dehydration Hypertension Hyperlipidemia Gout Brief History of Present Illness: 64-year-old male with history of hypertension, gout, and hyperlipidemia. Patient is from out of town. Patient reported syncope at work. Patient was feeling lightheaded. When evaluated by co-worker, blood pressure was low. In the ER he was hypotensive and bradycardic. Patient given IV fluids and blood pressure support. Patient also found to have acute renal failure. Patient recently on colchicine and prednisone for gout. Patient also takes Arb inhibitor and diuretic therapy. Patient admitted for further evaluation and treatment. Hospital Course: Patient presented with syncope complicated with hypotension and bradycardia. Patient had been at work when he became very lightheaded. Initial evaluation showed acute renal failure. Patient recently on colchicine and prednisone for a gout attack. Patient also takes Arb inhibitor and diuretic therapy. Patient admitted for further evaluation. Nephrology was consulted. Patient received IV fluids. Blood pressure medications were held along with colchicine, allopurinol and prednisone. CT head shows prominence of ventricles. Cerebral artery was suspected versus normal pressure hydrocephalus. No normal pressure hydrocephalus symptoms noted. MRI could not be performed due to his renal dysfunction. No acute finding noted on echocardiogram with normal ejection fraction. Carotid Doppler showed no significant arthrosclerotic changes. Renal ultrasound showed no hydronephrosis or suspicious renal mass. Right kidney located in the right side pelvis likely normal developmental variant. Bladder ultrasound unremarkable. Patient recovered with IV fluid hydration. Renal function back to baseline. Case discussed at length with nephrology. At discharge will discontinue blood pressure medications including metoprolol, Arb inhibitor-Irbesartan and chlorthalidone. Will also discontinue colchicine and prednisone. Nephrology recommends to continue with allopurinol but at 300 mg daily to prevent gout attacks. Recommend to monitor blood pressure daily. He is to keep a record and follow up with his PCP early next week to follow up this hospitalization. Recommend to recheck BMP, uric acid at that time. Will also recommend MRI of brain to follow up CT finding of mild prominence of ventricles. Recommend nephrology follow up as an outpatient to further address. Patient is from out of town. He plans to go back to his state and local medical community. Information/radiology studies/laboratory/and summaries from the hospitalization will be provided prior to discharge so that he may take to his PCP and special ist Patient with hypertension. As recommended above, will recommend to discontinue all blood pressure medication at discharge. This includes metoprolol, Arb inhibitor-irbesartan, and chlorthalidone. Blood pressure is stable at this time. Recommend to recheck blood pressure daily and keep a daily log. Recommend to maintain blood pressure less than 140/90. Recommend follow up with his PCP to further monitor and address. Patient with hyperlipidemia. This has remained stable. Recommend to continue with Crestor daily. Patient with history of gout. As recommended above, patient will discontinue colchicine and prednisone. Nephrology recommends to increase allopurinol dose at discharge. Patient will continue with allopurinol 300 mg daily to keep gout attacks under control. Recommend to recheck lab-BMP and uric acid in 1 week. Education on gout including gout diet will be provided. Recommend to refrain from alcohol use, red meat and red wine. Recommend follow up with nephrology as an outpatient to further monitor and address. Vital Signs/Physical Exam: Temp Pulse Resp BP Pulse Ox 97.8 F 56 17 131/80 99 12/25/19 08:00 12/25/19 08:00 12/25/19 08:00 12/25/19 08:00 12/25/19 08:00 General: Alert, In no apparent distress, Oriented x3, Cooperative HEENT: Atraumatic Neck: Supple Respiratory: Clear to auscultation bilaterally, Normal air movement Cardiovascular: Normal pulses, Regular rate/rhythm Gastrointestinal: Normal bowel sounds, Soft and benign, Non-distended, No tenderness, No masses, No rebound, No guarding Musculoskeletal: No erythema, No tenderness, No warmth Integumentary: No tenderness/swelling, No erythema, No warmth, No cyanosis Neurological: Normal speech, Normal strength at 5/5 x4 extr, Normal tone, Normal affect Laboratory Data at Discharge: WBC 5.1 K/uL (4.3-10.9) D 12/25/19 05:19 Hgb 13.8 g/dL (13.6-17.9) 12/25/19 05:19 Hct 40.1 % (39.6-49.0) 12/25/19 05:19 Plt Count 175 K/uL (152-406) 12/25/19 05:19 PT 12.3 SECONDS (9.5-12.5) 12/23/19 14:32 INR 1.04 12/23/19 14:32 Sodium 141 mmol/L (136-145) 12/25/19 05:19 Potassium 3.7 mmol/L (3.5-5.1) 12/25/19 05:19 BUN 30 mg/dL (7-18) H 12/25/19 05:19 Creatinine 1.39 mg/dL (0.55-1.3) H D 12/25/19 05:19 Glucose 89 mg/dL (74-106) 12/25/19 05:19 Uric Acid 11.5 mg/dL (3.5-7.2) H 12/24/19 04:34 Phosphorus 4.1 mg/dL (2.5-4.9) 12/24/19 04:34 Magnesium 1.8 mg/dL (1.8-2.4) 12/25/19 05:19 Total Bilirubin 1.3 mg/dL (0.2-1.0) H 12/23/19 14:32 AST 35 U/L (15-37) 12/23/19 14:32 ALT 62 U/L (12-78) 12/23/19 14:32 Alkaline Phosphatase 76 U/L (45-117) 12/23/19 14:32 Triglycerides 237 mg/dL (<150) H 12/24/19 05:24 Cholesterol 170 mg/dL (<200) 12/24/19 05:24 HDL Cholesterol 41 mg/dL (40-60) 12/24/19 05:24 Cholesterol/HDL Ratio 4.15 12/24/19 05:24 Home Medications: Dexlansoprazole [Dexilant] 60 mg PO PRN PRN 12/23/19 Fluticasone [Flonase 50MCG Nasal [place]*] 2 sprays NS DAILY 12/23/19 Levocetirizine Dihydrochloride [Xyzal] 5 mg PO DAILY 12/23/19 Rosuvastatin [Crestor*] 20 mg PO BEDTIME 12/23/19 Allopurinol 300 mg PO DAILY #30 tablet 12/25/19 New Medications: Allopurinol 300 mg PO DAILY #30 tablet Patient Discharge Instructions: 1. Recommend follow up with his PCP within 1 week. No work until cleared by his PCP. 2. Patient presented with syncope complicated with hypotension and bradycardia. Patient had been at work when he became very lightheaded. Initial evaluation showed acute renal failure. Patient recently on colchicine and prednisone for a gout attack. Patient also takes Arb inhibitor and diuretic therapy. Patient admitted for further evaluation. Nephrology was consulted. Patient received IV fluids. Blood pressure medications were held along with colchicine, allopurinol and prednisone. CT head shows prominence of ventricles. Cerebral artery was suspected versus normal pressure hydrocephalus. No normal pressure hydrocephalus symptoms noted. MRI could not be performed due to his renal dysfunction. No acute finding noted on echocardiogram with normal ejection fraction. Carotid Doppler showed no significant arthrosclerotic changes. Renal ultrasound showed no hydronephrosis or suspicious renal mass. Right kidney located in the right side pelvis likely normal developmental variant. Bladder ultrasound unremarkable. Patient recovered with IV fluid hydration. Renal function back to baseline. Case discussed at length with nephrology. At discharge will discontinue blood pressure medications including metoprolol, Arb inhibitor-Irbesartan and chlorthalidone. Will also discontinue colchicine and prednisone. Nephrology recommends to continue with allopurinol but at 300 mg daily. Recommend to monitor blood pressure daily. He is to keep a record and follow up with his PCP early next week to follow up this hospitalization. Recommend to recheck BMP, uric acid at that time. Will also recommend MRI of brain to follow up CT finding of mild prominence of ventricles. Recommend nephrology follow up as an outpatient to further address. Patient is from out of town. He plans to go back to his state and local medical community. Information/radiology studies/laboratory/and summaries from the hospitalization will be provided prior to discharge so that he may take to his PCP and specialist. 3. Patient with hypertension. As recommended above, will recommend to discontinue all blood pressure medication at discharge. This includes metoprolol, Arb inhibitor-irbesartan, and chlorthalidone. Blood pressure is stable at this time. Recommend to recheck blood pressure daily and keep a daily log. Recommend to maintain blood pressure less than 140/90. R ecommend follow up with his PCP to further monitor and address. 4. Patient with hyperlipidemia. This has remained stable. Recommend to continue with Crestor daily. 5. Patient with history of gout. As recommended above, patient will discontinue colchicine and prednisone. Nephrology recommends to increase allopurinol dose at discharge. Patient will continue with allopurinol 300 mg daily to keep gout attacks under control. Recommend to recheck lab-BMP and uric acid in 1 week. Education on gout including gout diet will be provided. Recommend to refrain from alcohol use, red meat and red wine. Recommend follow up with nephrology as an outpatient to further monitor and address. Diet: AHA Activity: Ad sarahi Time spent managing pt's care (in minutes): 55
[2019-12-25 15:15] VITALS: BP 130/81; TEMP 97.2
[2019-12-25] MEDS ORDERED: ROSUVASTATIN 10 MG TAB PO SCH (21:00)
[2019-12-26] MEDS ORDERED: HOME MED [FLUTICASONE 50MCG NASAL SPRAY] NAS SCH (09:00)
[2019-12-26] MEDS ORDERED: FLUTICASONE 50MCG NASAL SPRAY NAS SCH (09:00)
== END 2019-12-25 13:21 | disposition home or self-care (01) | DRG 684 ==
LOC: ER 13:47 → 2ND 16:33
PROVIDERS: ADMIT Family Medicine; ATTEND Family Medicine
DX: N17.9 Acute kidney failure, unspecified (principal); I10 Essential (primary) hypertension; E78.5 Hyperlipidemia, unspecified; R00.1 Bradycardia, unspecified; I95.9 Hypotension, unspecified; M10.9 Gout, unspecified; E86.1 Hypovolemia; E87.6 Hypokalemia; T50.995A Adverse effect of other drugs, medicaments and biological substances, initial encounter; Z79.899 Other long term (current) drug therapy; Z87.891 Personal history of nicotine dependence
CPT/HCPCS: 36415; 70450; 71045; 71250; 72125; 76770; 76857; 80048; 80061; 80076; 81001; 82533; 82550; 83735; 83880; 84100; 84145; 84443; 84484; 84550; 85025; 85610; 93005; 93306; 93880; 96360; 96361; 99284; J1644; J3475; J7030; J7120